=== PATIENT | male | born 1995 | race Caucasian/White ===

== ENCOUNTER 2022-02-17 22:22 | Emergency (ER) | payer BC, MEDICAID, OTHER, SELFPAY ==
[~2022-02-17] VITALS: Ht 177.8 cm; Wt 60.8 kg
[2022-02-18] MEDS ORDERED: PERCOCET 5MG/325MG TAB PO ONE (00:05)
[2022-02-18] MEDS ORDERED: AUGMENTIN 875 MG TAB PO ONE (00:05)
[2022-02-18] MEDS ORDERED: AMOX875T2 PO (00:10)
[2022-02-18 00:17] VITALS: BP 136/69
== END 2022-02-18 00:20 | disposition home or self-care (01) ==
LOC: M ED 22:22
DX: K04.7 Periapical abscess without sinus (principal); K02.9 Dental caries, unspecified; K08.89 Other specified disorders of teeth and supporting structures; Z87.891 Personal history of nicotine dependence; Z88.1 Allergy status to other antibiotic agents